=== PATIENT | female | born 2000 | race Caucasian/White ===

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

== ENCOUNTER 2018-06-02 17:29 | Emergency (ER) | payer OTHER ==
[~2018-06-02] VITALS: Ht 167.6 cm; Wt 131.3 kg
[2018-06-02 17:59] LABS: HEMATOCRIT 40.9 % (36.0-46.0); HEMOGLOBIN 14.3 G/DL (11.9-15.5); MCH 28.8 PG (29.0-34.0); MCV 82.5 FL (83-99); PLATELET COUNT 248 K/uL (156-360); RBC DIS.WIDTH-CV 12.4 % (11.8-14.6); RBC DIS.WIDTH-SD 37.2 % (39-53); RED BLOOD COUNT 4.96 M/uL (3.80-5.20); WHITE BLOOD COUNT 9.8 K/uL (4.1-10.2)
[2018-06-02 18:10] LABS: ALBUMIN 4.6 g/dL (3.2-4.8); CHLORIDE 108 mEq/L (99-109); POTASSIUM 4.5 mEq/L (3.7-5.4); SODIUM 139 mEq/L (136-147)
[2018-06-02 18:12] LABS: GLUCOSE 104 mg/dL (70-99); TOTAL PROTEIN 7.8 g/dL (6.4-8.3)
[2018-06-02 18:14] LABS: TOTAL BILIRUBIN 0.5 mg/dL (0.0-1.0)
[2018-06-02 18:16] LABS: ALKALINE PHOSPHATASE 55 IU/L (3-129); CREATININE 0.8 mg/dL (0.6-1.3); GFR ESTIMATE (CALCULATED) > 59 mL/min/
[2018-06-02 18:17] LABS: UREA NITROGEN (BUN) 9 mg/dL (9-23)
[2018-06-02 18:18] LABS: AST (GOT) 23 IU/L (2-34)
[2018-06-02 18:19] LABS: ALT (GPT) 37 IU/L (3-49); LIPASE 16 U/L (1.0-51.0)
[2018-06-02 18:27] LABS: QUANTITATIVE HCG < 4.0 MIU/ML
[2018-06-02 18:55] LABS: APPEARANCE CLEAR ((CLEAR)); BILIRUBIN NEGATIVE; BLOOD MODERATE; COLOR YELLOW ((YELLOW)); GLUCOSE (STRIP) NEGATIVE; KETONES NEGATIVE; LEUKOCYTES TRACE; NITRITE NEGATIVE; PROTEIN (STRIP) 30; SPECIFIC GRAVITY 1.021 (1.000-1.030); UROBILINOGEN 0.2 MG/DL (0.2-1.0)
[2018-06-02 19:08] LABS: BACTERIA RARE /HPF; EPITHELIAL CELLS RARE /HPF; MUCUS TRACE /LPF; RED BLOOD CELLS 40-50 /HPF (0-5); UCUL ADDED? NO; WHITE BLOOD CELLS 0-5 /HPF (0-5)
[2018-06-02] MEDS ORDERED: NAPROSYN500 MG PO (20:27)
[2018-06-02] MEDS ORDERED: ZOFRAN ODT4 MG PO (20:27)
[2018-06-02 20:45] VITALS: BP 112/84
== END 2018-06-02 20:46 | disposition home or self-care (01) ==
LOC: EME 17:29
DX: R10.2 Pelvic and perineal pain (principal); Z87.42 Personal history of other diseases of the female genital tract; E66.01 Morbid (severe) obesity due to excess calories; J45.909 Unspecified asthma, uncomplicated; E28.2 Polycystic ovarian syndrome; F41.9 Anxiety disorder, unspecified; F32.9 Major depressive disorder, single episode, unspecified; F42.9 Obsessive-compulsive disorder, unspecified; F90.9 Attention-deficit hyperactivity disorder, unspecified type; F31.9 Bipolar disorder, unspecified; F91.3 Oppositional defiant disorder; F17.200 Nicotine dependence, unspecified, uncomplicated; Z91.040 Latex allergy status
CPT/HCPCS: 76856; 80053; 81003; 83690; 84702; 85027; 99281; 99285